=== PATIENT | male | born 1975 | race African-American/Black ===

== ENCOUNTER 2025-07-15 03:39 | Emergency (ER) | payer BC ==
[2025-07-15 04:52] LABS: #Basophils 0.04 10x3/uL (0.0-0.2); #Eosinophils 0.07 10x3/uL (0.0-0.7); #Monocytes 0.52 10x3/uL (0.11-0.59); #Neutrophils 5.86 10x3/uL (1.40-6.50); %Basophils 0.5 % (0.0-1.0); %Eosinophils 0.8 % (0.0-10.0); %Lymphocytes 23.0 % (21.0-51.0); %Monocytes 6.2 % (0.0-10.0); %Neutrophils 69.3 % (42.0-75.0); Hematocrit 34.9 % (42.0-52.0); Hemoglobin 12.6 g/dL (14.0-18.0); Mean Corpuscular Hemoglobin 27.5 pg (27.0-31.0); Mean Corpuscular Volume 76.2 fL (78.0-98.0); Platelet Count 291 10x3/uL (130-400); Red Blood Cell (RBC) Count 4.58 mill/uL (4.70-6.10); White Blood Cell (WBC) Count 8.45 10x3/uL (4.8-10.8)
[2025-07-15 05:10] LABS: INR-International Normal Ratio 1.0; PTT 28.4 sec (22.9-36.1); Prothrombin Time 13.3 sec (12.0-14.7)
[2025-07-15 05:11] LABS: Cocaine Metabolite Screen Negative (Negative); THC/Cannabinoid Screen Negative (Negative); Tricyclic Screen Negative (Negative)
[2025-07-15 05:19] LABS: Anion Gap 16 mmol/L (10-20); BUN (Urea Nitrogen) 13 mg/dL (8.4-25.7); Calc. Creatinine Clearance 0 mL/min (70-130); Carbon Dioxide 26 mmol/L (22-29); Chloride 103 mmol/L (98-107); Potassium 3.7 mmol/L (3.5-5.1); Sodium 141 mmol/L (136-145)
[2025-07-15 05:20] LABS: ALT (SGPT) 11 U/L (Less than 45); AST (SGOT) 15 U/L (11-34); Albumin 3.2 g/dL (3.1-4.5); Alkaline Phosphatase 101 U/L (40-110); Bilirubin, Total 0.4 mg/dL (0.3-1.2); Calcium 9.1 mg/dL (7.8-10.44); Globulin 2.6 g/dL (2.4-3.5); Glucose 316 mg/dL (70-105)
[2025-07-15 05:27] LABS: Magnesium 1.7 mg/dL (1.6-2.6)
[2025-07-15 05:28] LABS: Acetaminophen Less than 10 mcg/mL (Less than 10); Salicylate Less than 8.0 mg/dL (Less than 8.0)
[2025-07-15] MEDS ORDERED: Ketorolac Tromethamine 30 MG (1 mL) VIAL ONE (06:09)
[2025-07-15] MEDS ORDERED: levETIRAcetam 500 MG (5 mL) VIAL ONE ×2 (07:45→07:48)
[2025-07-15] MEDS ORDERED: Aspirin Chewable 81 MG TAB ONE ×2 (08:00→08:01)
== END 2025-07-15 08:45 | disposition short-term general hospital (02) ==
LOC: ERS 03:39
DX: G40.A09 Absence epileptic syndrome, not intractable, without status epilepticus (principal); I63.9 Cerebral infarction, unspecified; M25.512 Pain in left shoulder; F17.210 Nicotine dependence, cigarettes, uncomplicated
CPT/HCPCS: 70450; 70496; 70498; 71045; 80053; 80306; 80307; 83605; 83735; 84484; 85025; 85610; 85730; 93005; 96365; 96375; J1885; J1953